=== PATIENT | male | born 1940 | race Caucasian/White ===

== ENCOUNTER 2016-06-09 09:56 | Emergency (ER) | payer MEDICARE, OTHER ==
[~2016-06-09] VITALS: Ht 175.3 cm; Wt 96.2 kg
[~2016-06-09 09:56] MED LIST: AMIO200T PO; ASPI81TA81; BISO10TA5 PO; CALC600T25; CINN500T PO; FERR325T PO; FISH120014; FLAX100013; FURO40TA PO; GLUCCAP3; ISOS30TA3 PO; LISI10TA3 PO; MULT1CHW70; NIAC500 PO; OMEP40CA2 PO; POTA10TA8 PO; PROSCAP2 PO; TYLE650T9; WARF-58 PO; ZOCO40TA PO
[2016-06-09 10:00] VITALS: BP 119/66; PULSE 66; RESP 18; TEMP 99.2; O2SAT 95
[2016-06-09] MEDS ORDERED: OXYC-395 PO (10:28)
[2016-06-09] MEDS ORDERED: CYCL1TAB29 PO (10:42)
--- NOTE | 2016-06-09 10:42 | PD ---
HPI Chief Complaint: Back/ Neck Pain or Injury Time Seen by Provider: 10:17 Travel History International Travel<30 days: No Contact w/Intl Traveler<30days: No Traveled to known affect area: No History of Present Illness HPI 75-year-old man with a history of multiple medical problems, including CAD, aVR , A. fib, on warfarin, presents with low back pain for the past 2 days. He states he was in his lazy boy, his foot was inadvertently call in a floor rug rock when he went to go through the chair back to [facility]. He pulled his back. He is having severe pain since then. He's had chronic back problems and arthritis. He is on acetaminophen 3 times daily. Pain shot on the right side initially, no radiation now. No numbness tingling. He felt like the right leg gave out a little bit on him when he was walking in. No overt weakness. No other complaints. History Past Medical History Narrative Medical CAD, history of CABG Porcine aortic valve replacement Hypertension on hyperlipidemia A. fib, on warfarin CHF Tetanus Vaccination: > 5 Years Influenza Vaccination: Yes Social History Alcohol Use: No Tobacco Use: No (quit ) Allergies-Medications (Allergen,Severity, Reaction): Coded Allergies: No Known Allergies (Unverified , 06/09/16) Reported Meds & Prescriptions Reported Meds & Active Scripts Active Reported Oxycodone (Oxycodone HCl) 10 Mg Tab 10 Mg PO Q6H PRN Warfarin 3 Mg Tab 3 Mg PO DAILY Potassium Chloride CR (Potassium Chloride) 10 Meq Tab 10 Meq PO BID Glucosamine & Fish Oil 117-179-45-40 mg (Glucosamine-Fish Oil-Epa-Dha) 1 Cap Cap Tylenol 8 Hour Arthritis (Acetaminophen) 650 Mg Tab Zocor (Simvastatin) 40 Mg Tab 20 Mg PO DAILY Omeprazole 40 Mg Cap 40 Mg PO DAILY Niaspan (Niacin) 500 Mg Tab 500 Mg PO HS Multivitamin Adult (Multiple Vitamins W/ Minerals) 1 Chw Chw Lisinopril 10 Mg Tab 10 Mg PO BID Isosorbide Mononitrate ER (Isosorbide Mononitrate) 30 Mg Colin 30 Mg PO DAILY Furosemide 40 Mg Tab 40 Mg PO BID Flax Seed Oil (Flaxseed (Linseed)) 1,000 Mg Cap Fish Oil ([place]-3 Fatty Acids) 1,200 Mg Cap Ferrous Sulfate 325 Mg Tab 325 Mg PO DAILY Cinnamon 500 Mg Tab 500 Mg PO DAILY Calcium (Calcium Carbonate) 600 Mg Tab Bisoprolol (Bisoprolol Fumarate) 10 Mg Tab 10 Mg PO DAILY Aspir-81 (Aspirin) 81 Mg Tabdr Amiodarone (Amiodarone HCl) 200 Mg Tab 200 Mg PO DAILY Review of Systems Except as stated in HPI: all other systems reviewed are Neg Physical Exam Narrative GENERAL: Well-developed, well-nourished, no acute distress. SKIN: Warm and dry. CARDIOVASCULAR: Warm and well perfused. RESPIRATORY: Normal rate and effort. MUSCULOSKELETAL: Normal appearance of back and bilateral lower extremities. No ecchymosis, swelling, bruising. No rashes. Normal muscle bulk and tone. NEUROLOGICAL: Strength full 5/5 and equal in bilateral lower extremities in proximal and distal muscle groups. 5/5 in large toe flexion and extension. Sensation is intact to light touch throughout. Reflexes symmetric. No clonus. Negative seated straight leg raise bilaterally. PSYCHIATRIC: Appropriate mood and affect; insight and judgment normal. Data Data Last Documented VS Vital Signs Date Time Temp Pulse Resp B/P Pulse Ox O2 Delivery O2 Flow Rate FiO2 06/09/16 10:00 99.2 66 18 119/66 95 Orders Morphine Inj (Morphine Inj) (06/09/16 10:45) Ketorolac Inj (Toradol Inj) (06/09/16 10:45) MDM Medical Decision Making Medical Screen Exam Complete: Yes Emergency Medical Condition: Yes Differential Diagnosis Back strain or sprain, radiculopathy, sciatica, herniated disc, other Narrative Course Medical decision-making new While 75-year-old man presents emergent from with acute back pain, likely through his back out. Looks well. Some radiculopathy symptoms. Normal exam. Recommend supportive treatment. On warfarin so we'll try to avoid NSAIDs. Continue acetaminophen and Flexeril as needed. Diagnosis Primary Impression: Low back strain Qualified Code: S39.012A - Low back strain, initial encounter Additional Instructions: Continue acetaminophen 3 times daily. Take Flexeril as needed for muscle spasms and strain. Follow up with her primary doctor in the next 2-4 days. Return to the emergency department for any worsening pain, numbness, tingling, weakness, or any other new or worsening symptoms. Med/Other Pt SpecificInfo: Prescription(s) given Scripts Cyclobenzaprine (Flexeril)10 Mg Tab10 Mg PO TID PRN (MUSCLE SPASM) #30 TAB Prov:Francis Thayer MD 06/09/16 Disposition: 01 DISCHARGE HOME Condition: Stable Francis Thayer MD Jun 09, 2016 10:42
[2016-06-09] MEDS ORDERED: KETOROLAC TROMETHAMINE 60 MG/2 ML (IM) VIAL IM ONE (10:45)
[2016-06-09] MEDS ORDERED: MORPHINE SULFATE 4 MG/ML INJ IM ONE (10:45)
[2016-06-09 10:58] VITALS: BP 110/61; PULSE 56; RESP 16; O2SAT 94
[2016-06-09 11:29] VITALS: RESP 16
== END 2016-06-09 11:34 | disposition home or self-care (01) ==
LOC: PHEFT 09:56
DX: S39.012A Strain of muscle, fascia and tendon of lower back, initial encounter (principal); I10 Essential (primary) hypertension; I25.10 Atherosclerotic heart disease of native coronary artery without angina pectoris; I48.91 Unspecified atrial fibrillation; I50.9 Heart failure, unspecified; Z95.2 Presence of prosthetic heart valve; Z95.1 Presence of aortocoronary bypass graft; Z79.01 Long term (current) use of anticoagulants; X50.0XXA Overexertion from strenuous movement or load, initial encounter; Y93.89 Activity, other specified; Y92.008 Other place in unspecified non-institutional (private) residence as the place of occurrence of the external cause
CPT/HCPCS: 96372; 99283; J1885; J2270

== ENCOUNTER 2016-06-20 08:35 | Inpatient (IN) | payer MEDICARE, OTHER ==
[2016-06-20] VITALS (11 sets, daily range): BP systolic 120–160; BP diastolic 64–89; PULSE 57–78; RESP 18–20; TEMP 96.3–98.6; O2SAT 92–97
[~2016-06-20 08:35] MED LIST changes: +CYCL1TAB29 PO; +OXYC-395 PO; -PROSCAP2 PO
--- NOTE | 2016-06-20 08:52 | PD ---
HPI Chief Complaint: Musculoskeletal Complaint Time Seen by Provider: 08:48 Travel History International Travel<30 days: No Contact w/Intl Traveler<30days: No Traveled to known affect area: No History of Present Illness HPI This is a 75-year-old male who presents to the emergency department with low back pain. His pain is worsening over the past 5 days described as a stabbing pain in the lower back associated with spasms, intermittent, severe, worse with movement. It's at the point where he has trouble getting out of bed and it takes him an hour and a half to 2 hours just to get from seated to standing position. He's been seeing Dr. Cain his primary care physician for this pain who has prescribed him Tylenol with Codeine and obtained an MRI of the lumbar spine. He also used was seen in the emergency department and prescribed Flexeril which is not helping him. He denies any numbness or weakness in his pain is localized in the low back and doesn't radiate down the legs. PFSH Past Medical History Hx Anticoagulant Therapy: Yes Atrial Fibrillation: Yes Heart Rhythm Problems: Yes Chest Pain: Yes Congestive Heart Failure: Yes Diminished Hearing: No Hypertension: Yes Musculoskeletal: Yes (chronic back pain) Past Surgical History Body Medical Devices: medtronic freestyle aortic root heart valve Cardiac Surgery: Yes (cardiac ablation, bovine valve) Social History Alcohol Use: No Tobacco Use: No (quit 1950s) Substance Use: No Allergies-Medications (Allergen,Severity, Reaction): Coded Allergies: No Known Allergies (Unverified , 06/20/16) Reported Meds & Prescriptions Reported Meds & Active Scripts Active Reported Fish Oil ([place]-3 Fatty Acids) 1,200 Mg Cap 1 Tab PO DAILY Warfarin 3 Mg Tab 3 Mg PO DAILY Potassium Chloride CR (Potassium Chloride) 10 Meq Tab 10 Meq PO DAILY Glucosamine & Fish Oil [id number] mg (Glucosamine-Fish Oil-Epa-Dha) 1 Cap Cap Tylenol 8 Hour Arthritis (Acetaminophen) 650 Mg Tab Zocor (Simvastatin) 40 Mg Tab 20 Mg PO DAILY Omeprazole 40 Mg Cap 40 Mg PO DAILY Niaspan (Niacin) 500 Mg Tab 500 Mg PO HS Multivitamin Adult (Multiple Vitamins W/ Minerals) 1 Chw Chw Lisinopril 10 Mg Tab 10 Mg PO BID Isosorbide Mononitrate ER (Isosorbide Mononitrate) 30 Mg Colin 30 Mg PO DAILY Furosemide 40 Mg Tab 40 Mg PO DAILY Flax Seed Oil (Flaxseed (Linseed)) 1,000 Mg Cap Ferrous Sulfate 325 Mg Tab 325 Mg PO DAILY Cinnamon 500 Mg Tab 500 Mg PO DAILY Calcium (Calcium Carbonate) 600 Mg Tab Bisoprolol (Bisoprolol Fumarate) 10 Mg Tab 10 Mg PO DAILY Aspir-81 (Aspirin) 81 Mg Tabdr Amiodarone (Amiodarone HCl) 200 Mg Tab 200 Mg PO DAILY Review of Systems Except as stated in HPI: all other systems reviewed are Neg Physical Exam Narrative GENERAL:Well appearing, no acute distress SKIN: Warm and dry. HEAD: Atraumatic. Normocephalic. EYES: Pupils equal and round. No injection or drainage. ENT: Moist mucous membranes NECK: Trachea midline. CARDIOVASCULAR: Regular rate and rhythm. No murmur appreciated. 2+ bilateral d.p. pulses in the lower extremities with normal capillary refill. RESPIRATORY: Clear to auscultation. Breath sounds equal bilaterally. GASTROINTESTINAL: Abdomen soft, non-tender, nondistended. MUSCULOSKELETAL: No obvious deformities. NEUROLOGICAL: Awake and alert. No obvious cranial nerve deficits. 4/5 strength bilateral lower extremities, sensation is grossly intact to light touch PSYCHIATRIC: Appropriate mood and affect; insight and judgment normal. Data Data Last Documented VS Vital Signs Date Time Temp Pulse Resp B/P Pulse Ox O2 Delivery O2 Flow Rate FiO2 06/20/16 09:47 76 20 140/78 94 06/20/16 08:46 98.6 Orders Complete Blood Count With Diff (06/20/16 08:48) Basic Metabolic Panel (Bmp) (06/20/16 08:48) Prothrombin Time / Inr (Pt) (06/20/16 08:48) Hydromorphone Pf Inj (Dilaudid Pf Inj) (06/20/16 09:00) Ketorolac Inj (Toradol Inj) (06/20/16 09:00) Consult Neurosurgery (06/20/16 ) Admit Order (Ed Use Only) (06/20/16 ) Labs Laboratory Tests Test 06/20/16 09:00 White Blood Count 9.7 TH/MM3 Red Blood Count 5.05 MIL/MM3 Hemoglobin 13.6 GM/DL Hematocrit 41.5 % Mean Corpuscular Volume 82.1 FL Mean Corpuscular Hemoglobin 26.9 PG Mean Corpuscular Hemoglobin 32.7 % Concent Red Cell Distribution Width 16.1 % Platelet Count 253 TH/MM3 Mean Platelet Volume 7.5 FL Neutrophils (%) (Auto) 83.2 % Lymphocytes (%) (Auto) 10.5 % Monocytes (%) (Auto) 5.2 % Eosinophils (%) (Auto) 0.6 % Basophils (%) (Auto) 0.5 % Neutrophils # (Auto) 8.1 TH/MM3 Lymphocytes # (Auto) 1.0 TH/MM3 Monocytes # (Auto) 0.5 TH/MM3 Eosinophils # (Auto) 0.1 TH/MM3 Basophils # (Auto) 0.0 TH/MM3 CBC Comment DIFF FINAL Differential Comment Prothrombin Time 25.2 SEC Prothromb Time International 2.2 RATIO Ratio Sodium Level 139 MEQ/L Potassium Level 4.3 MEQ/L Chloride Level 103 MEQ/L Carbon Dioxide Level 26.5 MEQ/L Anion Gap 10 MEQ/L Blood Urea Nitrogen 13 MG/DL Creatinine 0.98 MG/DL Estimat Glomerular Filtration 74 ML/MIN Rate Random Glucose 127 MG/DL Calcium Level 8.6 MG/DL [facility] Medical Decision Making Medical Screen Exam Complete: Yes Emergency Medical Condition: Yes Interpretation(s) Labs are reassuring INR is 2.2 MRI: Broad-based disc protrusion effacing the ventral thecal sac at L1-L2 with mild spinal stenosis, moderate spinal stenosis at L2-L3, and a broad-based disc bulge effacing the thecal sac at L3-L4 Differential Diagnosis Herniated disc, spinal stenosis, arthritis, cauda equina syndrome Narrative Course This is a 75-year-old male who presents to the emergency department with acute on chronic low back pain. He has been unable to sit up or stand today without severe pain. He was placed on a monitor and an IV was established. He was given Toradol and Dilaudid however his symptoms continue to be severe. He had an outpatient MRI which demonstrates spinal stenosis and multiple disc protrusions with effacement of the thecal sac. After pain control I attempted to move the patient and he sit up at all without severe pain. I don't think the patient can be discharged home as he is unable to walk. I spoke to Dr. López regarding the patient's MRI findings and he requested that he be transferred to the main hospital for further neurosurgical evaluation. Patient will be admitted to the hospitalist service Physician Communication Physician Communication Discussed with Dr. Neff and Dr. López Diagnosis Primary Impression: Spinal stenosis Qualified Code: M48.06 - Spinal stenosis of lumbar region Admitting Information Admitting Physician Requests: Observation Carey Gilliam MD Jun 20, 2016 08:52
[2016-06-20] MEDS ORDERED: KETOROLAC TROMETHAMINE 30 MG/ML (IVP) VIAL IV PUSH ONE (09:00)
[2016-06-20] MEDS ORDERED: HYDROmorphone HCL PF 1 MG/ML VIAL IV PUSH ONE (09:00)
[2016-06-20 09:11] LABS: AUTOMATED NEUTROPHIL # 8.1 TH/MM3 (1.8-7.7); BASOPHIL % 0.5 % (0.0-2.0); EOSINOPHIL # 0.1 TH/MM3 (0-0.4); EOSINOPHIL % 0.6 % (0.0-4.0); HEMATOCRIT 41.5 % (39.0-51.0); LYMPH % 10.5 % (9.0-44.0); MEAN CELL VOLUME 82.1 FL (80.0-100.0); MEAN CORPUSCULAR HEMOGLOBIN 26.9 PG (27.0-34.0); MEAN CORPUSCULAR HGB CONC 32.7 % (32.0-36.0); MONO % 5.2 % (0.0-8.0); NEUT % 83.2 % (16.0-70.0); PLATELET COUNT 253 TH/MM3 (150-450); RED BLOOD COUNT 5.05 MIL/MM3 (4.50-5.90); RED CELL DISTRIBUTION WIDTH 16.1 % (11.6-17.2); WHITE BLOOD COUNT 9.7 TH/MM3 (4.0-11.0)
[2016-06-20 09:12] LABS: HEMO FLAGS DIFF FINAL
--- NOTE | 2016-06-20 09:12 | HHI.FF ---
Face to Face Verification Diagnosis: (1) Low back strain Physical Therapy Order: Evaluate and Treat, Improve ambulation, Strength and gait training Home Health Nursing Order: Medical education Signs/symptoms of disease process Medication education-adverse effect Nursing assessment with vital signs I have seen patient Francis Yañez on 06/20/16. My clinical findings support the need for the requested home health care services because: Ltd mobility - disease progression Deconditioned w/ increased weakness High risk of falls I certify that my clinical findings support that this patient is homebound because: Unsteady gait/balance [id number] bed/chair Carey Gilliam MD Jun 20, 2016 09:12
[2016-06-20 09:25] LABS: INTERNATIONAL NORMALIZED RATIO 2.2 RATIO; PROTHROMBIN TIME - PATIENT 25.2 SEC (9.8-11.6)
[2016-06-20 09:47] LABS: BICARBONATE 26.5 MEQ/L (21.0-32.0)
[2016-06-20 10:04] LABS: POTASSIUM 4.3 MEQ/L (3.5-5.1)
[2016-06-20] MEDS ORDERED: FISH120014 PO (11:22)
[2016-06-20] MEDS ORDERED: SODIUM CHLORIDE 0.9% FLUSH 5 ML FLUSH FLUSH PRN (12:00)
[2016-06-20] MEDS ORDERED: KETOROLAC TROMETHAMINE 30 MG/ML (IVP) VIAL IVP PRN (12:00)
[2016-06-20] MEDS ORDERED: ONDANSETRON HCL 4 MG/2 ML VIAL IVP PRN (12:00)
[2016-06-20] MEDS ORDERED: ACETAMINOPHEN/HYDROcodone 325 MG/5 MG TAB PO PRN (12:00)
[2016-06-20] MEDS ORDERED: ACETAMINOPHEN 325 MG TAB PO PRN (12:00)
[2016-06-20] MEDS ORDERED: NALOXONE HCL 0.4 MG/ML AMP IV PRN (12:00)
--- NOTE | 2016-06-20 12:28 | HHI.HP ---
[facility] Service [facility] Primary Care Physician No Primary Care Physician Admission Diagnosis low back pain Diagnoses: Travel History International Travel<30 Days: No Contact w/Intl Traveler <30 Da: No Traveled to Known Affected Are: No History of Present Illness This is a pleasant 75 year-old female with past medical history of atrial fibrillation, coronary artery disease, thoracic aortic aneurysm repair, porcine aortic valve on Coumadin, who presents to the ER today complaining of a two-week history of back pain now associated with inability to ambulate. He had been seen in the ER several days ago for this. His PCP Dr. olson ordered an MRI of the lumbar spine which was obtained 2 days ago and shows moderate spinal stenosis at the L2 to L3 levels, bulging disc at L3 to L4 which is effacing the ventral thecal sac, and moderate to severe bilateral foraminal narrowing at the L4 to L5 level. The patient has back pain that is radiating down both legs. He also has severe muscle spasms. The pain has been getting worse in outpatient setting. It has been taking him an hour to get ready every morning with his . This morning he was unable to ambulate or get out of bed. Every time he tries to move his leg he gets severe muscle spasm. His called [facility] and brought him to the emergency department. He had been taking Tylenol with Codeine for the pain. The patient also has constipation. He denies numbness or tingling in the sagittal region or bowel or bladder incontinence. The ER physician did discuss with neurosurgery director of conservation Dr. López who agreed for the patient to be transferred to the [facility] for neurosurgical evaluation. Review of Systems Constitutional: DENIES: Fever, Chills Ears, nose, mouth, throat: DENIES: Throat pain, Hoarseness Respiratory: DENIES: Cough, Shortness of breath Cardiovascular: DENIES: Chest pain, Palpitations Gastrointestinal: DENIES: Nausea, Vomiting Genitourinary: DENIES: Dysuria Musculoskeletal: COMPLAINS OF: Back pain, DENIES: Neck pain Integumentary: DENIES: Pruritus, Rash Neurologic: COMPLAINS OF: Abnormal gait, Localized weakness (unable to move legs), DENIES: Headache, Paresthesias, Tremor Psychiatric: DENIES: Anxiety, Confusion Past Family Social History Past Medical History Atrial fibrillation followed by Dr. rosales, Coumadin levels managed by Dr. Auguste Hypertension Congestive heart failure with unknown ejection fraction, appears fluid compensated currently History of myocardial infarction 2 Thoracic aortic aneurysm status post open repair in February 2015 in [place] Coronary artery bypass grafting in 2014 in [place] Aortic stenosis status post porcine valve in 2014 and [place] Hypertension Hyperlipidemia GERD Past Surgical History Cardiac catheterization with stents 2 in 2006 Coronary artery bypass with grafts, thoracic aortic aneurysm repair, aortic valve porcine in [place] in February 2015 Reported Medications Allergies Coded Allergies Type Severity Reaction Last Updated Verified No Known Allergies 06/20/16 No Active Scripts Medications Dose Route/Sig Days Date Category Fish Oil ([place]-3 Fatty Acids) 1,200 Mg Cap 1 Tab PO DAILY 06/20/16 Reported Warfarin 3 Mg Tab 3 Mg PO DAILY 05/10/16 Reported Potassium Chloride CR (Potassium Chloride) 10 Meq Tab 10 Meq PO DAILY 05/10/16 Reported Glucosamine & Fish Oil [id number] mg (Glucosamine-Fish Oil-Epa-Dha) 1 Cap Cap 05/10/16 Reported Tylenol 8 Hour Arthritis (Acetaminophen) 650 Mg Tab 05/10/16 Reported Zocor (Simvastatin) 40 Mg Tab 20 Mg PO DAILY 05/10/16 Reported Omeprazole 40 Mg Cap 40 Mg PO DAILY 05/10/16 Reported Niaspan (Niacin) 500 Mg Tab 500 Mg PO HS 05/10/16 Reported Multivitamin Adult (Multiple Vitamins W/ Minerals) 1 Chw Chw 05/10/16 Reported Lisinopril 10 Mg Tab 10 Mg PO BID 05/10/16 Reported Isosorbide Mononitrate ER (Isosorbide Mononitrate) 30 Mg Colin 30 Mg PO DAILY 05/10/16 Reported Furosemide 40 Mg Tab 40 Mg PO DAILY 05/10/16 Reported Flax Seed Oil (Flaxseed (Linseed)) 1,000 Mg Cap 05/10/16 Reported Ferrous Sulfate 325 Mg Tab 325 Mg PO DAILY 05/10/16 Reported Cinnamon 500 Mg Tab 500 Mg PO DAILY 05/10/16 Reported Calcium (Calcium Carbonate) 600 Mg Tab 05/10/16 Reported Bisoprolol (Bisoprolol Fumarate) 10 Mg Tab 10 Mg PO DAILY 05/10/16 Reported Aspir-81 (Aspirin) 81 Mg Tabdr 05/10/16 Reported Amiodarone (Amiodarone HCl) 200 Mg Tab 200 Mg PO DAILY 05/10/16 Reported Allergies: Coded Allergies: No Known Allergies (Unverified , 06/20/16) Family History Reviewed and noncontributory Social History He smoked briefly more than 60 years ago. He is , his is [place]. The patient denies significant alcohol use. Physical Exam Vital Signs Vital Signs Date Time Temp Pulse Resp B/P Pulse Ox O2 Delivery O2 Flow Rate FiO2 06/20/16 12:10 60 20 120/64 96 06/20/16 11:15 78 20 145/89 94 06/20/16 09:47 76 20 140/78 94 06/20/16 09:10 68 18 147/79 92 06/20/16 08:46 98.6 71 20 152/79 92 Physical Exam GENERAL: Well-nourished, well-developed pleasant elderly male patient. SKIN: Warm and dry. HEAD: Normocephalic. EYES: No scleral icterus. No injection or drainage. NECK: Supple, trachea midline. No JVD or lymphadenopathy. CARDIOVASCULAR: Regular rate and rhythm without murmurs, gallops, or rubs. Normal sinus rhythm on telemetry. RESPIRATORY: Breath sounds equal bilaterally. No accessory muscle use. GASTROINTESTINAL: Abdomen soft, non-tender, nondistended. EXTREMITIES: No cyanosis, or edema. NEUROLOGICAL: Awake, alert, and oriented x 3. The patient has 3 out of 5 dorsi and plantar flexion in bilateral feet, he is unable to flex the hip or lift either leg off the bed even minimally. Sensation to light touch intact throughout lower extremities. Laboratory Laboratory Tests Test 06/20/16 09:00 White Blood Count 9.7 Red Blood Count 5.05 Hemoglobin 13.6 Hematocrit 41.5 Mean Corpuscular Volume 82.1 Mean Corpuscular Hemoglobin 26.9 Mean Corpuscular Hemoglobin 32.7 Concent Red Cell Distribution Width 16.1 Platelet Count 253 Mean Platelet Volume 7.5 Neutrophils (%) (Auto) 83.2 Lymphocytes (%) (Auto) 10.5 Monocytes (%) (Auto) 5.2 Eosinophils (%) (Auto) 0.6 Basophils (%) (Auto) 0.5 Neutrophils # (Auto) 8.1 Lymphocytes # (Auto) 1.0 Monocytes # (Auto) 0.5 Eosinophils # (Auto) 0.1 Basophils # (Auto) 0.0 CBC Comment DIFF FINAL Differential Comment Prothrombin Time 25.2 Prothromb Time International 2.2 Ratio Sodium Level 139 Potassium Level 4.3 Chloride Level 103 Carbon Dioxide Level 26.5 Anion Gap 10 Blood Urea Nitrogen 13 Creatinine 0.98 Estimat Glomerular Filtration 74 Rate Random Glucose 127 Calcium Level 8.6 Result Diagram: 06/20/16 0900 06/20/16 0900 Imaging See history of present illness Assessment and Plan Assessment and Plan -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 Now associated with new neurologic deficit including inability to ambulate as well as some weakness in dorsi and plantar flexion bilaterally in the lower extremities. The patient has severe muscle spasm as well. He is failed outpatient treatment with his memory care provider. We will admit to the hospital. Neurosurgery consultation has been requested. The ER physician did discuss with Dr. López who will be evaluating the patient at the [facility]. Unfortunately the patient is a poor surgical candidate. It is not clear if he would require surgery either at this time. The patient and his additionally have noted to me that if no surgery can be performed that they would like to be transferred back to [facility] as the lives in this area. -In the meantime I will consult physical therapy, start him on Lortab as needed for pain, Flexeril as needed for muscle spasm, total IV needed for severe breakthrough pain. Heating pads as needed as well. -Paroxysmal Atrial fibrillation followed by Dr. rosales, Coumadin levels managed by Dr. Auguste - continue Coumadin with pharmacy consult, amiodarone and bisoprolol. -Hypertension - continue lisinopril -Congestive heart failure with unknown ejection fraction, appears fluid compensated currently -History of myocardial infarction 2 -Thoracic aortic aneurysm status post open repair in February 2015 in [place] -Coronary artery bypass grafting in 2014 in [place] Aortic stenosis status post porcine valve in 2014 and [place] Hypertension Hyperlipidemia ADAM Neff,Kavita Cole MD Jun 20, 2016 12:28
[2016-06-20] MEDS: ACETAMINOPHEN/HYDROcodone 325 MG/10 MG TAB PO PRN ×2 (14:27→18:23)
--- NOTE | 2016-06-20 22:06 | PD.CONS ---
History of Present Illness Service Neurosurgery Consult Requested By Medicine service Reason for Consult Severe low back pain Primary Care Physician No Primary Care Physician Diagnoses: History of Present Illness Pleasant 75-year-old gentleman with a history of chronic low back pain who states approximately 2 weeks ago he was in his recliner and he pushed backwards and felt a snap in his back with immediate onset of severe pain across his low back at the waistline. Since then he has also experienced some radiation of pain to the posterior lateral right lower extremity, although this pain is better in the past day since he has been receiving more consistent pain medication. He states that trying to walk on his left leg seems to increase the back pain. He did have some problems with constipation. The past couple weeks and states that he had a bowel movement yesterday, but hard to that had gone approximately 4 or 5 days without a bowel movement. He has no complaint of bladder dysfunction. There is no complaint of definite weakness or numbness in the lower extremity. He has no complaint of any upper extremity or cervical or thoracic regions symptoms. He gives a history of low back pain starting approximately 1968. He states it every few years he has a severe flareup of back pain which puts him at bed rest for up to 6 weeks. His last severe flareup was approximately 4 years ago. He has had pain management injections and worse times in the past. Review of Systems Constitutional: DENIES: Fever, Chills Ears, nose, mouth, throat: DENIES: Throat pain Respiratory: DENIES: Cough, Sputum production, Shortness of breath Cardiovascular: DENIES: Chest pain, Palpitations Gastrointestinal: COMPLAINS OF: Constipation, DENIES: Abdominal pain, Diarrhea , Nausea Musculoskeletal: COMPLAINS OF: Muscle aches, Stiffness, Back pain, DENIES: Joint pain, Neck pain Hematologic/lymphatic: DENIES: Bruising Neurologic: COMPLAINS OF: Abnormal gait, Poor Balance, DENIES: Headache Psychiatric: DENIES: Anxiety Past Family Social History Allergies: Coded Allergies: No Known Allergies (Unverified , 06/20/16) Past Medical History Coronary artery disease Aortic valve disease-status post aortic valve replacement approximately 15 months ago Atrial fibrillation Hypertension CHF Previous [place] Dyslipidemia Chronic low back pain Past Surgical History Aortic valve replacement Thoracic aortic aneurysm repair CABG Cardiac catheter with stent placement Reported Medications Reported Meds & Active Scripts Active Reported Fish Oil ([place]-3 Fatty Acids) 1,200 Mg Cap 1 Tab PO DAILY Warfarin 3 Mg Tab 3 Mg PO DAILY Potassium Chloride CR (Potassium Chloride) 10 Meq Tab 10 Meq PO DAILY Glucosamine & Fish Oil [id number] mg (Glucosamine-Fish Oil-Epa-Dha) 1 Cap Cap Tylenol 8 Hour Arthritis (Acetaminophen) 650 Mg Tab Zocor (Simvastatin) 40 Mg Tab 20 Mg PO DAILY Omeprazole 40 Mg Cap 40 Mg PO DAILY Niaspan (Niacin) 500 Mg Tab 500 Mg PO HS Multivitamin Adult (Multiple Vitamins W/ Minerals) 1 Chw Chw Lisinopril 10 Mg Tab 10 Mg PO BID Isosorbide Mononitrate ER (Isosorbide Mononitrate) 30 Mg Colin 30 Mg PO DAILY Furosemide 40 Mg Tab 40 Mg PO DAILY Flax Seed Oil (Flaxseed (Linseed)) 1,000 Mg Cap Ferrous Sulfate 325 Mg Tab 325 Mg PO DAILY Cinnamon 500 Mg Tab 500 Mg PO DAILY Calcium (Calcium Carbonate) 600 Mg Tab Bisoprolol (Bisoprolol Fumarate) 10 Mg Tab 10 Mg PO DAILY Aspir-81 (Aspirin) 81 Mg Tabdr Amiodarone (Amiodarone HCl) 200 Mg Tab 200 Mg PO DAILY Family History Negative cancer, diabetes, neurologic disorders Social History Smoked cigarettes many years ago No significant alcohol use Physical Exam Vital Signs Vital Signs Date Time Temp Pulse Resp B/P Pulse Ox O2 Delivery O2 Flow Rate FiO2 06/20/16 20:09 98.1 67 20 160/84 95 06/20/16 18:05 96.3 57 18 140/78 95 06/20/16 16:10 59 20 143/76 93 06/20/16 14:13 58 20 136/78 97 06/20/16 13:20 60 20 132/80 96 06/20/16 12:10 60 20 120/64 96 06/20/16 11:15 78 20 145/89 94 06/20/16 09:47 76 20 140/78 94 06/20/16 09:10 68 18 147/79 92 06/20/16 08:46 98.6 71 20 152/79 92 Physical Exam GENERAL: This is a well-nourished, well-developed patient, in no apparent distress. SKIN: No rashes, ecchymoses or lesions. Cool and dry. Feet are somewhat cold to touch but he has good capillary refill HEAD: Atraumatic. Normocephalic. EYES: Sclerae are clear and nonicteric ENT: Oropharynx clear NECK: Nontender. Normal range of motion CARDIOVASCULAR: Regular rate and rhythm RESPIRATORY: Clear, nonlabored GASTROINTESTINAL: Abdomen soft, moderately distended. Nontender MUSCULOSKELETAL: No extremity edema or cyanosis. Dorsalis pedis and posterior tibial pulses 2+ bilateral. Feet are somewhat cool to touch NEUROLOGICAL: Awake and alert Oriented X3 Speech is clear Conversant and appropriate Follow simple commands well Answers questions appropriately Reasonable judgment and insight Recent and remote memory are intact No evidence of anxiety or depression Sensation intact by touch all extremities Strength normal major flexion and extension groups throughout the upper and lower extremities He is somewhat cautious with lower extremity motor testing but with encouragement maintains normal strength throughout. Zulema's response absent bilateral No ankle clonus Plantar flex her bilateral Laboratory Laboratory Tests Test 06/20/16 09:00 White Blood Count 9.7 Red Blood Count 5.05 Hemoglobin 13.6 Hematocrit 41.5 Mean Corpuscular Volume 82.1 Mean Corpuscular Hemoglobin 26.9 Mean Corpuscular Hemoglobin 32.7 Concent Red Cell Distribution Width 16.1 Platelet Count 253 Mean Platelet Volume 7.5 Neutrophils (%) (Auto) 83.2 Lymphocytes (%) (Auto) 10.5 Monocytes (%) (Auto) 5.2 Eosinophils (%) (Auto) 0.6 Basophils (%) (Auto) 0.5 Neutrophils # (Auto) 8.1 Lymphocytes # (Auto) 1.0 Monocytes # (Auto) 0.5 Eosinophils # (Auto) 0.1 Basophils # (Auto) 0.0 CBC Comment DIFF FINAL Differential Comment Prothrombin Time 25.2 Prothromb Time International 2.2 Ratio Sodium Level 139 Potassium Level 4.3 Chloride Level 103 Carbon Dioxide Level 26.5 Anion Gap 10 Blood Urea Nitrogen 13 Creatinine 0.98 Estimat Glomerular Filtration 74 Rate Random Glucose 127 Calcium Level 8.6 Result Diagram: 06/20/16 0900 06/20/16 0900 Imaging Patient's recent [facility] images have been reviewed by the undersigned. The study reveals moderate L2-3 stenosis with severe right and moderate left L4 5 foraminal stenosis and moderate bilateral L4 5 lateral recess stenosis. Assessment and Plan Assessment and Plan Impression: 1. Lumbar spondylosis and degenerative disc disease with moderate L2-3 canal and at least moderate bilateral L4 5 foraminal stenosis. 2. Recent onset severe low back pain. Patient has history of chronic low back pain with intermittent severe flareups. 3. No definite indication of focal lumbar radiculopathy or neurogenic claudication on exam. He may have some right L4-5 radicular symptoms without deficit, related to right L4 5 foraminal and lateral recess stenosis Recommendations: The MRI imaging findings were discussed at length with the patient. Since his pain seems to be gradually improving, and he does not have a significant focal neurologic deficit, it is recommended that he continue conservative treatment. His present medication regimen for the back pain has been reviewed and will be continued. Continue physical therapy. I advised him that for any aggressive treatment including possible interventional pain management, that the anticoagulation would have to be held. Given his significant history of cardiac disease with valve and stent placement and prior [place], he would appear to be at relatively high increased risk for cardiac event or CVA of the anticoagulation is held for any invasive procedures. Eddie López MD Jun 20, 2016 22:05
[2016-06-20] MEDS: NIACIN 500 MG EXTENDED RELEASE TAB PO SCH (22:54)
[2016-06-20] MEDS: LISINOPRIL 10 MG TAB PO SCH (22:54)
[2016-06-20] MEDS: SODIUM CHLORIDE 0.9% FLUSH 5 ML FLUSH FLUSH SCH (22:54)
[2016-06-21] MEDS: ACETAMINOPHEN/HYDROcodone 325 MG/10 MG TAB PO PRN ×3 (04:23→20:21)
[2016-06-21 04:55] VITALS: BP 125/69; PULSE 59; RESP 20; TEMP 97.9; O2SAT 94
[2016-06-21 07:42] LABS: INTERNATIONAL NORMALIZED RATIO 2.5 RATIO; PROTHROMBIN TIME - PATIENT 28.9 SEC (9.8-11.6)
[2016-06-21 08:00] VITALS: BP 119/76; PULSE 63; RESP 18; TEMP 97.7; O2SAT 95
[2016-06-21 08:03] LABS: BICARBONATE 26.1 MEQ/L (21.0-32.0); POTASSIUM 4.5 MEQ/L (3.5-5.1)
[2016-06-21] MEDS: FERROUS SULFATE 325 MG (65 MG ELEMENTAL IRON) TAB PO SCH (08:45)
[2016-06-21] MEDS: POTASSIUM CHLORIDE 10 MEQ CONTROLLED RELEASE TAB PO SCH (08:45)
[2016-06-21] MEDS: PANTOPRAZOLE SOD 40 MG DELAYED RELEASE TAB PO SCH (08:45)
[2016-06-21] MEDS: FUROSEMIDE 40 MG TAB PO SCH (08:45)
[2016-06-21] MEDS: AMIODARONE 200 MG TAB PO SCH (08:45)
[2016-06-21] MEDS: PRAVASTATIN SOD 40 MG TAB PO SCH (08:46)
[2016-06-21] MEDS: SODIUM CHLORIDE 0.9% FLUSH 5 ML FLUSH FLUSH SCH ×2 (08:46→20:21)
[2016-06-21] MEDS: ISOSORBIDE MONONITRATE 30 MG TAB PO SCH (08:46)
[2016-06-21] MEDS: LISINOPRIL 10 MG TAB PO SCH ×2 (08:46→20:21)
[2016-06-21] MEDS: BISOPROLOL FUMARATE 5 MG TAB PO SCH (09:59)
[2016-06-21] MEDS: HYDROmorphone HCL PF 1 MG/ML VIAL IV PRN (09:59)
[2016-06-21] MEDS ORDERED: INFLUENZA VIRUS VACCINE (QUADRIVALENT) 0.5 ML SYR IM ONE (10:00)
--- NOTE | 2016-06-21 11:03 | HHI.PR ---
Subjective Remarks Follow up for low back pain, inability to ambulate. The patient reports continued low back pain that is located across the belt line with radiation into the right buttocks and lateral thigh. He has not yet been able to ambulate. He gets some temporary relief with the pain medications however the pain returns when the medications wear off. He denies any significant weakness of either lower extremity, however he is limited by pain. Objective Vitals Vital Signs Date Time Temp Pulse Resp B/P Pulse Ox O2 Delivery O2 Flow Rate FiO2 06/21/16 08:00 97.7 63 18 119/76 95 06/21/16 04:55 97.9 59 20 125/69 94 06/20/16 23:39 98.1 67 20 134/69 94 06/20/16 20:09 98.1 67 20 160/84 95 06/20/16 18:05 96.3 57 18 140/78 95 06/20/16 16:10 59 20 143/76 93 06/20/16 14:13 58 20 136/78 97 06/20/16 13:20 60 20 132/80 96 06/20/16 12:10 60 20 120/64 96 06/20/16 11:15 78 20 145/89 94 Result Diagram: 06/20/16 0900 06/21/16 0705 Objective Remarks GENERAL: Well-nourished, well-developed elderly male patient in [facility]. SKIN: Warm and dry. No rash. HEAD: Normocephalic. Atraumatic. NECK: Supple. Trachea midline. CARDIOVASCULAR: Regular rate and rhythm. S1, S2 noted. No murmur appreciated. RESPIRATORY: No accessory muscle use. Clear to auscultation. Breath sounds equal bilaterally. GASTROINTESTINAL: Abdomen soft, non-tender, nondistended. Normoactive bowel sounds x4. MUSCULOSKELETAL: No obvious deformities. Extremities without clubbing, cyanosis , or edema. Diffuse lumbar paraspinous muscle tenderness to palpation. Unable to lift bilateral lower extremities off the bed secondary to low back pain. NEUROLOGICAL: Awake and alert. No obvious cranial nerve deficits. Motor grossly within normal limits. 5/5 muscle strength in bilateral upper and lower extremities. Normal speech. PSYCHIATRIC: Appropriate mood and affect; insight and judgment normal. Medications and IVs Current Medications Medications (Trade) Dose Ordered Sig/Kaiden Route Start Time Stop Time Status Last Admin (NS Flush) 2 ml UNSCH PRN FLUSH 06/20/16 12:00 (NS Flush) 2 ml BID FLUSH 06/20/16 21:00 06/21/16 08:46 (Tylenol) 650 mg Q4H PRN PO 06/20/16 12:00 (Zofran Inj) 4 mg Q6H PRN IVP 06/20/16 12:00 (Toradol Inj) 30 mg Q6H PRN IVP 06/20/16 12:00 06/25/16 11:59 ([place] 5-325 Mg) 1 tab Q4H PRN PO 06/20/16 12:00 06/20/16 22:54 ([place] 10-325 Mg) 1 tab Q4H PRN PO 06/20/16 12:00 06/21/16 04:23 (Dilaudid Pf Inj) 0.5 mg Q3H PRN IV 06/20/16 12:00 06/21/16 09:59 (Narcan Inj) 0.4 mg UNSCH PRN IV 06/20/16 12:00 (Flexeril) 5 mg Q8H PRN PO 06/20/16 12:00 (Cordarone) 200 mg DAILY PO 06/21/16 09:00 06/21/16 08:45 (Ferrous Sulfate) 325 mg DAILY PO 06/21/16 09:00 06/21/16 08:45 (Lasix) 40 mg DAILY PO 06/21/16 09:00 06/21/16 08:45 (Imdur) 30 mg DAILY PO 06/21/16 09:00 06/21/16 08:46 (Prinivil) 10 mg BID PO 06/20/16 21:00 06/21/16 08:46 (Slo-Niacin) 500 mg HS PO 06/20/16 21:00 06/20/16 22:54 (Protonix) 40 mg DAILY PO 06/21/16 09:00 06/21/16 08:45 (KCl) 10 meq DAILY PO 06/21/16 09:00 06/21/16 08:45 (Coumadin) 3 mg DAILY@16 PO 06/21/16 16:00 (Zebeta) 10 mg DAILY PO 06/21/16 09:00 06/21/16 09:59 Pravastatin Sodium 40 mg 40 mg DAILY PO 06/21/16 09:00 06/21/16 08:46 (Coumadin Consult Pharmacy) 0 ml @ 0 mls/hr UNSCH OTHER 06/20/16 12:00 Urinary Catheter: No Vascular Central Line Catheter: No A/P Assessment and Plan 75-year-old male with hx of afib on Coumadin, HTN, HLD, CHF, CAD, thoracic aortic aneurysm s/p repair 2014, CABG 2014, aortic stenosis s/p porcine valve 2014, GERD, presents with 2 week history of low back pain and inability to ambulate -Lumbar Radiculopathy, Spasms, with 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 FAILED OUTPATIENT treatment with PCP. Now associated with new neurologic deficit including inability to ambulate and severe muscle spasm. -Consulted Neurosurgery, Unfortunately the patient is a poor surgical candidate, and high risk to be off Coumadin, recommends conservative treatment -Consult PT, patient would prefer to go home with [facility], case management consulted -Continue pain control with [place] prn, IV Dilaudid and IV Toradol prn breakthrough; Flexeril prn spams; Heating pad -Patient still unable to ambulate today, monitor progress -Paroxysmal Atrial fibrillation followed by Dr. Auguste, Coumadin levels managed by Dr. Auguste -INR therapeutic. Continue Coumadin with pharmacy consult , amiodarone and bisoprolol. -Hypertension - continue lisinopril -Congestive heart failure with unknown ejection fraction, appears fluid compensated currently -History of myocardial infarction 2 -Thoracic aortic aneurysm status post open repair in February 2015 in [place] -Coronary artery bypass grafting in 2014 in [place] -Aortic stenosis status post porcine valve in 2014 and [place] -Hypertension -Hyperlipidemia -GERD Continue home medications as appropriate. DVT Prophylaxis: on Coumadin Written by Ann-Marie Redd, acting as scribe for Dr. Jordan on 06/21/16 at 09:30. The documentation accurately reflects the work performed [id number] by me Dr. Jordan on 06/21/16 at 09:30. Ann-Marie Redd PA-C Jun 21, 2016 11:03 Carol Jordan MD Jun 21, 2016 12:51
[2016-06-21 12:00] VITALS: BP 108/65; PULSE 61; RESP 18; TEMP 98.9; O2SAT 93
[2016-06-21 16:00] VITALS: BP 104/65; PULSE 64; RESP 18; TEMP 97.3; O2SAT 92
[2016-06-21] MEDS: WARFARIN SOD 3 MG TAB PO SCH (16:16)
[2016-06-21 19:29] VITALS: BP 125/67; PULSE 61; RESP 18; TEMP 98; O2SAT 95
[2016-06-21] MEDS: CYCLOBENZAPRINE HCL 10 MG TAB PO PRN (20:22)
[2016-06-21] MEDS: NIACIN 500 MG EXTENDED RELEASE TAB PO SCH (20:28)
[2016-06-21 23:00] VITALS: BP 122/64; PULSE 65; RESP 16; TEMP 98.6; O2SAT 95
[2016-06-22] MEDS: CYCLOBENZAPRINE HCL 10 MG TAB PO PRN (03:47)
[2016-06-22] MEDS: ACETAMINOPHEN/HYDROcodone 325 MG/10 MG TAB PO PRN ×4 (03:48→18:32)
[2016-06-22 04:00] VITALS: BP 138/73; PULSE 64; RESP 18; TEMP 96.9; O2SAT 94
[2016-06-22 07:26] VITALS: BP 124/58; PULSE 51; RESP 20; TEMP 96; O2SAT 94
[2016-06-22 07:27] LABS: INTERNATIONAL NORMALIZED RATIO 2.5 RATIO; PROTHROMBIN TIME - PATIENT 28.2 SEC (9.8-11.6)
[2016-06-22] MEDS: SODIUM CHLORIDE 0.9% FLUSH 5 ML FLUSH FLUSH SCH ×2 (09:00→21:00)
[2016-06-22] MEDS: FUROSEMIDE 40 MG TAB PO SCH (09:52)
[2016-06-22] MEDS: ISOSORBIDE MONONITRATE 30 MG TAB PO SCH (09:52)
[2016-06-22] MEDS: PRAVASTATIN SOD 40 MG TAB PO SCH (09:52)
[2016-06-22] MEDS: POTASSIUM CHLORIDE 10 MEQ CONTROLLED RELEASE TAB PO SCH (09:52)
[2016-06-22] MEDS: AMIODARONE 200 MG TAB PO SCH (09:52)
[2016-06-22] MEDS: FERROUS SULFATE 325 MG (65 MG ELEMENTAL IRON) TAB PO SCH (09:53)
[2016-06-22] MEDS: LISINOPRIL 10 MG TAB PO SCH (09:53)
[2016-06-22] MEDS: PANTOPRAZOLE SOD 40 MG DELAYED RELEASE TAB PO SCH (09:53)
[2016-06-22] MEDS ORDERED: PNEUMOCOCCAL POLYVALENT INJ 25 MCG/0.5 ML SYR IM ONE (10:00)
--- NOTE | 2016-06-22 11:30 | HHI.PR ---
Subjective Remarks C/o constipation last BM was 3 days ago. Also complaints of muscle spasm and stiffness. Will increase flexeril. Seen by PT, patient is not able to ambulate. PT recommends rehab. Patient without new motor deficit. No n/v. Denies cp, sob. Objective Vitals Vital Signs Date Time Temp Pulse Resp B/P Pulse Ox O2 Delivery O2 Flow Rate FiO2 06/22/16 07:26 96.0 51 20 124/58 94 06/22/16 04:48 18 06/22/16 04:00 96.9 64 18 138/73 94 06/21/16 23:00 98.6 65 16 122/64 95 06/21/16 19:29 98.0 61 18 125/67 95 06/21/16 16:00 97.3 64 18 104/65 92 06/21/16 12:00 98.9 61 18 108/65 93 I/O 06/21/16 06/21/16 06/21/16 06/22/16 06/22/16 06/22/16 07:00 15:00 23:00 07:00 15:00 23:00 Intake Total 600 ml Balance 600 ml Intake Oral 600 ml # Voids 2 0 0 # Bowel Movements 0 Result Diagram: 06/20/16 0900 06/21/16 0705 Objective Remarks GENERAL: Well-nourished, well-developed elderly male patient in [facility]. SKIN: Warm and dry. No rash. HEAD: Normocephalic. Atraumatic. NECK: Supple. Trachea midline. CARDIOVASCULAR: Regular rate and rhythm. S1, S2 noted. No murmur appreciated. RESPIRATORY: No accessory muscle use. Clear to auscultation. Breath sounds equal bilaterally. GASTROINTESTINAL: Abdomen soft, non-tender, nondistended. Normoactive bowel sounds x4. MUSCULOSKELETAL: No obvious deformities. Extremities without clubbing, cyanosis , or edema. Diffuse lumbar paraspinous muscle tenderness to palpation. Unable to lift bilateral lower extremities off the bed secondary to low back pain. NEUROLOGICAL: Awake and alert. No obvious cranial nerve deficits. Motor grossly within normal limits. 5/5 muscle strength in bilateral upper and lower extremities. Normal speech. PSYCHIATRIC: Appropriate mood and affect; insight and judgment normal. A/P Assessment and Plan 75-year-old male with hx of afib on Coumadin, HTN, HLD, CHF, CAD, thoracic aortic aneurysm s/p repair 2014, CABG 2014, aortic stenosis s/p porcine valve 2015, GERD, presents with 2 week history of low back pain and inability to ambulate -Lumbar Radiculopathy, Spasms, with 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 FAILED OUTPATIENT treatment with PCP. Now associated with new neurologic deficit including inability to ambulate and severe muscle spasm. -Consulted Neurosurgery, Unfortunately the patient is a poor surgical candidate, and high risk to be off Coumadin, recommends conservative treatment -Consult PT, patient would prefer to go home with [facility], case management consulted -Continue pain control with [place] prn, IV Dilaudid and IV Toradol prn breakthrough; increase Flexeril to 10 mg po q8hrs scheduled for spams; Heating pad -Patient still unable to ambulate today, monitor progress. Seen by PT recommends rehab -Constipation: Laxatives/stool softeners. -Paroxysmal Atrial fibrillation followed by Dr. Auguste, Coumadin levels managed by Dr. Auguste -INR therapeutic. Continue Coumadin with pharmacy consult , amiodarone and bisoprolol. -Hypertension - continue lisinopril -Congestive heart failure with unknown ejection fraction, appears fluid compensated currently -History of myocardial infarction 2 -Thoracic aortic aneurysm status post open repair in February 2015 in [place] -Coronary artery bypass grafting in 2014 in [place] -Aortic stenosis status post porcine valve in 2014 and [place] -Hypertension -Hyperlipidemia -GERD Continue home medications as appropriate. DVT Prophylaxis: on Coumadin Carol Jordan MD Jun 22, 2016 11:30
[2016-06-22] MEDS: CYCLOBENZAPRINE HCL 10 MG TAB PO SCH (11:42)
[2016-06-22] MEDS: BISOPROLOL FUMARATE 5 MG TAB PO SCH (11:46)
[2016-06-22] MEDS ORDERED: NORC5TAB PO (11:51)
[2016-06-22] MEDS ORDERED: SENN1TAB PO (11:51)
[2016-06-22] MEDS ORDERED: CYCL1TAB29 PO (11:51)
--- NOTE | 2016-06-22 11:51 | HHI.DS ---
Discharge Summary Admission Date Jun 20, 2016 at 11:54 Discharge Date: Jun 26, 2016 Admitting Diagnosis low back pain (1) Spinal stenosis ICD Code: M48.00 Diagnosis: Principal (2) Low back strain ICD Code: S39.012A Diagnosis: Principal Procedures none Brief History - From Admission This is a pleasant 75 year-old female with past medical history of atrial fibrillation, coronary artery disease, thoracic aortic aneurysm repair, porcine aortic valve on Coumadin, who presents to the ER today complaining of a two-week history of back pain now associated with inability to ambulate. He had been seen in the ER several days ago for this. His PCP Dr. olson ordered an MRI of the lumbar spine which was obtained 2 days ago and shows moderate spinal stenosis at the L2 to L3 levels, bulging disc at L3 to L4 which is effacing the ventral thecal sac, and moderate to severe bilateral foraminal narrowing at the L4 to L5 level. The patient has back pain that is radiating down both legs. He also has severe muscle spasms. The pain has been getting worse in outpatient setting. It has been taking him an hour to get ready every morning with his . This morning he was unable to ambulate or get out of bed. Every time he tries to move his leg he gets severe muscle spasm. His called [facility] and brought him to the emergency department. He had been taking Tylenol with Codeine for the pain. The patient also has constipation. He denies numbness or tingling in the sagittal region or bowel or bladder incontinence. The ER physician did discuss with neurosurgery rn lactation Dr. López who agreed for the patient to be transferred to the [facility] for neurosurgical evaluation. CBC/BMP: 06/20/16 0900 06/21/16 0705 Significant Findings Laboratory Tests Test 06/20/16 06/21/16 06/22/16 09:00 07:05 06:43 Mean Corpuscular Hemoglobin 26.9 PG (27.0-34.0) Neutrophils (%) (Auto) 83.2 % (16.0-70.0) Neutrophils # (Auto) 8.1 TH/MM3 (1.8-7.7) Prothrombin Time 25.2 SEC 28.9 SEC 28.2 SEC (9.8-11.6) (9.8-11.6) (9.8-11.6) Estimat Glomerular Filtration 74 ML/MIN (>89) 72 ML/MIN (>89) Rate Random Glucose 127 MG/DL 132 MG/DL (74-106) (74-106) Sodium Level 135 MEQ/L (136-145) Blood Urea Nitrogen 19 MG/DL (7-18) PE at Discharge GENERAL: Well-nourished, well-developed elderly male patient in [place]. SKIN: Warm and dry. No rash. HEAD: Normocephalic. Atraumatic. NECK: Supple. Trachea midline. CARDIOVASCULAR: Regular rate and rhythm. S1, S2 noted. No murmur appreciated. RESPIRATORY: No accessory muscle use. Clear to auscultation. Breath sounds equal bilaterally. GASTROINTESTINAL: Abdomen soft, non-tender, nondistended. Normoactive bowel sounds x4. MUSCULOSKELETAL: No obvious deformities. Extremities without clubbing, cyanosis , or edema. Diffuse lumbar paraspinous muscle tenderness to palpation. Unable to lift bilateral lower extremities off the bed secondary to low back pain. NEUROLOGICAL: Awake and alert. No obvious cranial nerve deficits. Motor grossly within normal limits. 5/5 muscle strength in bilateral upper and lower extremities. Normal speech. PSYCHIATRIC: Appropriate mood and affect; insight and judgment normal. 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 FAILED OUTPATIENT treatment with PCP. Now associated with new neurologic deficit including inability to ambulate and severe muscle spasm. -Consulted Neurosurgery, Unfortunately the patient is a poor surgical candidate, and high risk to be off Coumadin, recommends conservative treatment -Consult PT, patient would prefer to go home with [facility], case management consulted -Continue pain control with [place] prn, IV Dilaudid and IV Toradol prn breakthrough; increase Flexeril to 10 mg po q8hrs scheduled for spams; Heating pad -Patient still unable to ambulate today, monitor progress. Seen by PT recommends rehab -Constipation: Laxatives/stool softeners. Will try laxatives/enema, discussed with the nurse and patient. If no response we will consider holding laxatives and starting meds for opioid induced constipation -Vit D deficiency. Start ergocalciferol. -Vit B into a lower side. Will start B12 supplement. Likely change in color of the urine is from B12, but will check UA -Paroxysmal Atrial fibrillation followed by Dr. Auguste, Coumadin levels managed by Dr. Auguste -INR therapeutic. Continue Coumadin with pharmacy consult , amiodarone and bisoprolol. -Hypertension - continue lisinopril -Congestive heart failure with unknown ejection fraction, appears fluid compensated currently -History of myocardial infarction 2 -Thoracic aortic aneurysm status post open repair in February 2015 in [place] -Coronary artery bypass grafting in 2014 in [place] -Aortic stenosis status post porcine valve in 2014 and [place] -Hypertension -Hyperlipidemia -GERD Continue home medications as appropriate. DVT Prophylaxis: on Coumadin Improved. Has a BM before DC. Was DC to SNF in fairly good condition . To follow up as OP with PCP and consultants. Pt Condition on Discharge: Stable Discharge Disposition: Discharge to SNF Discharge Time: > 30 minutes Discharge Instructions DIET: Follow Instructions for: Heart Healthy Diet Activities you can perform: Regular-No Restrictions Follow up Referrals: Pain Management - 1 Week PCP Follow-up - 3-5 Days New Medications: Hydrocodone-Acetaminophen (Jessie) 5-325 mg Tab 1 TAB PO Q4H PRN PAIN #30 Ref 0 TAB Cyanocobalamin (Vitamin B-12) 1,000 Mcg Tab 1000 MCG PO DAILY vit b12 supplement #30 TAB Cyclobenzaprine (Flexeril) 10 Mg Tab 10 MG PO Q8H muscle spasm #20 TAB Ergocalciferol (Drisdol) 50,000 Unit Cap 46925 UNITS PO Q7D vit d defici #8 CAP Sennosides-Docusate Sodium (Senna Plus 8.6-50 mg) 1 Tab Tab 2 TAB PO BID Constipation #60 TAB Continued Medications: Amiodarone (Amiodarone) 200 Mg Tab 200 MG PO DAILY Regulate Heart Beat #30 Ref [address] (Aspir-81) 81 Mg Tabdr Bisoprolol (Bisoprolol) 10 Mg Tab 10 MG PO DAILY Blood Pressure Management #30 Ref 0 TAB Calcium Carbonate (Calcium) 600 Mg Tab Cinnamon (Cinnamon) 500 Mg Tab 500 MG PO DAILY #1 BOTTLE Ferrous Sulfate (Ferrous Sulfate) 325 Mg Tab 325 MG PO DAILY Nutritional Supplement #30 Ref 0 TAB Flaxseed (Linseed) (Flax Seed Oil) 1,000 Mg Cap Furosemide (Furosemide) 40 Mg Tab 40 MG PO DAILY #60 Ref 0 TAB Glucosamine-Fish Oil-Epa-Dha (Glucosamine & Fish Oil [id number] mg) 1 Cap Cap Isosorbide Mononitrate ER (Isosorbide Mononitrate ER) 30 Mg Colin 30 MG PO DAILY Prevent Chest Pain #30 Ref 0 TAB Lisinopril (Lisinopril) 10 Mg Tab 10 MG PO BID #30 Ref 0 TAB Multiple Vitamins W/ Minerals (Multivitamin Adult) 1 Chw Chw Niacin ER (Niaspan) 500 Mg Tab 500 MG PO HS Cholesterol Management #30 Ref 0 TAB [place]-3 Fatty Acids (Fish Oil) 1,200 Mg Cap 1 TAB PO DAILY Omeprazole (Omeprazole) 40 Mg Cap 40 MG PO DAILY #30 Ref 0 CAP Potassium Chloride ER (Potassium Chloride CR) 10 Meq Tab 10 MEQ PO DAILY TAB Simvastatin (Zocor) 40 Mg Tab 20 MG PO DAILY Cholesterol Management #30 Ref 0 TAB Warfarin (Warfarin) 3 Mg Tab 3 MG PO DAILY Blood Clot Prevention #30 Ref 0 TAB Discontinued Medications: Acetaminophen (Tylenol 8 Hour Arthritis) 650 Mg Tab Carol Jordan MD Jun 22, 2016 11:51
--- NOTE | 2016-06-22 11:51 | HHI.DCPOC ---
Discharge Care Plan Goals to Promote Your Health * To prevent worsening of your condition and complications * To maintain your health at the optimal level Directions to Meet Your Goals Take your medications as prescribed Follow your dietary instruction Follow activity as directed Keep your appointments as scheduled Take your immunizations and boosters as scheduled If your symptoms worsen call your PCP, if no PCP go to Urgent Care Center or Emergency Room Smoking is Dangerous to Your Health. Avoid second hand smoke Call the 24-hour hour crisis hotline for domestic abuse at Carol Jordan MD Jun 22, 2016 11:51
[2016-06-22] MEDS ORDERED: DOCUSATE SODIUM 50 MG/SENNA 8.6 MG TAB PO PRN (12:00)
[2016-06-22] MEDS ORDERED: POLYETHYLENE GLYCOL 17 GM PKG PO ONE (12:00)
[2016-06-22] MEDS ORDERED: BISACODYL 10 MG SUPP PR PRN (12:00)
[2016-06-22 12:59] VITALS: BP 104/69; PULSE 70; RESP 17; TEMP 97.5; O2SAT 91
[2016-06-22 15:52] VITALS: BP 123/73; PULSE 80; RESP 16; TEMP 97.7; O2SAT 92
[2016-06-22] MEDS: WARFARIN SOD 3 MG TAB PO SCH (15:59)
[2016-06-22] MEDS: NEOMYCIN/POLYMYXIN/BACITRACIN OINT 15 GM TUBE TOPICAL SCH (15:59)
[2016-06-22 20:00] VITALS: BP 117/71; PULSE 63; RESP 16; TEMP 97.9; O2SAT 92
[2016-06-22] MEDS ORDERED: ERGOCALCIFEROL (VIT D2) 50,000 UNIT CAP PO SCH (21:00)
[2016-06-22] MEDS ORDERED: CYANOCOBALAMIN 1000 MCG/ML VIAL IM SCH (22:00)
[2016-06-23 00:30] VITALS: BP 111/64; PULSE 64; RESP 16; TEMP 98; O2SAT 93
[2016-06-23] MEDS: CYCLOBENZAPRINE HCL 10 MG TAB PO SCH ×4 (00:55→21:04)
[2016-06-23] MEDS: ACETAMINOPHEN/HYDROcodone 325 MG/10 MG TAB PO PRN ×3 (00:55→16:26)
[2016-06-23] MEDS: LISINOPRIL 10 MG TAB PO SCH ×3 (00:56→21:04)
[2016-06-23] MEDS: NIACIN 500 MG EXTENDED RELEASE TAB PO SCH ×2 (00:56→21:04)
[2016-06-23 04:30] VITALS: BP 120/74; PULSE 61; RESP 16; TEMP 97.6; O2SAT 93
[2016-06-23 06:50] LABS: INTERNATIONAL NORMALIZED RATIO 3.3 RATIO; PROTHROMBIN TIME - PATIENT 38.4 SEC (9.8-11.6)
[2016-06-23 08:00] VITALS: BP 141/84; PULSE 60; RESP 20; TEMP 97.1; O2SAT 92
[2016-06-23] MEDS: SODIUM CHLORIDE 0.9% FLUSH 5 ML FLUSH FLUSH SCH ×2 (09:01→21:05)
[2016-06-23] MEDS: FERROUS SULFATE 325 MG (65 MG ELEMENTAL IRON) TAB PO SCH (09:01)
[2016-06-23] MEDS: DOCUSATE SODIUM 50 MG/SENNA 8.6 MG TAB PO SCH ×2 (09:01→21:04)
[2016-06-23] MEDS: POTASSIUM CHLORIDE 10 MEQ CONTROLLED RELEASE TAB PO SCH (09:01)
[2016-06-23] MEDS: AMIODARONE 200 MG TAB PO SCH (09:01)
[2016-06-23] MEDS: CYANOCOBALAMIN 1,000 MCG TAB PO SCH (09:01)
[2016-06-23] MEDS: ISOSORBIDE MONONITRATE 30 MG TAB PO SCH (09:01)
[2016-06-23] MEDS: PANTOPRAZOLE SOD 40 MG DELAYED RELEASE TAB PO SCH (09:02)
[2016-06-23] MEDS: FUROSEMIDE 40 MG TAB PO SCH (09:02)
[2016-06-23] MEDS: PRAVASTATIN SOD 40 MG TAB PO SCH (09:02)
[2016-06-23] MEDS: POLYETHYLENE GLYCOL 17 GM PKG PO SCH (09:05)
[2016-06-23] MEDS: NEOMYCIN/POLYMYXIN/BACITRACIN OINT 15 GM TUBE TOPICAL SCH (09:07)
[2016-06-23] MEDS: BISOPROLOL FUMARATE 5 MG TAB PO SCH (09:19)
[2016-06-23] MEDS ORDERED: VITA10002 PO (09:55)
[2016-06-23] MEDS ORDERED: DRIS50002 PO (09:55)
--- NOTE | 2016-06-23 10:01 | HHI.PR ---
Subjective Remarks Says he has less muscle spasm and flexeril is helping. However he says she feels confused at times. Still with pain and inability to transfer. No n/v/d. Has constipation. Per nurse noted change in the color of the urine, he doesn't have any suprapubic pain or changein urinary habit. No fever or chills. Likely urine color changed from B12 supplement Objective Vitals Vital Signs Date Time Temp Pulse Resp B/P Pulse Ox O2 Delivery O2 Flow Rate FiO2 06/23/16 08:00 97.1 60 20 141/84 92 06/23/16 04:30 97.6 61 16 120/74 93 06/23/16 00:30 98.0 64 16 111/64 93 06/22/16 20:00 97.9 63 16 117/71 92 06/22/16 15:52 97.7 80 16 123/73 92 06/22/16 12:59 97.5 70 17 104/69 91 I/O 06/22/16 06/22/16 06/22/16 06/23/16 06/23/16 06/23/16 07:00 15:00 23:00 07:00 15:00 23:00 Intake Total 480 ml 480 ml Output Total 1 ml 300 ml 275 ml Balance 479 ml 180 ml -275 ml Intake Oral 480 ml 480 ml Output Urine Total 1 ml 300 ml 275 ml # Voids 0 Result Diagram: 06/20/16 0900 06/21/16 0705 Objective Remarks GENERAL: Well-nourished, well-developed elderly male patient in [facility]. SKIN: Warm and dry. No rash. HEAD: Normocephalic. Atraumatic. NECK: Supple. Trachea midline. CARDIOVASCULAR: Regular rate and rhythm. S1, S2 noted. No murmur appreciated. RESPIRATORY: No accessory muscle use. Clear to auscultation. Breath sounds equal bilaterally. GASTROINTESTINAL: Abdomen soft, non-tender, nondistended. Normoactive bowel sounds x4. MUSCULOSKELETAL: No obvious deformities. Extremities without clubbing, cyanosis , or edema. Diffuse lumbar paraspinous muscle tenderness to palpation. Unable to lift bilateral lower extremities off the bed secondary to low back pain. NEUROLOGICAL: Awake and alert. No obvious cranial nerve deficits. Motor grossly within normal limits. 5/5 muscle strength in bilateral upper and lower extremities. Normal speech. PSYCHIATRIC: Appropriate mood and affect; insight and judgment normal. 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 FAILED OUTPATIENT treatment with PCP. Now associated with new neurologic deficit including inability to ambulate and severe muscle spasm. -Consulted Neurosurgery, Unfortunately the patient is a poor surgical candidate, and high risk to be off Coumadin, recommends conservative treatment -Consult PT, patient would prefer to go home with [facility], case management consulted -Continue pain control with [place] prn, IV Dilaudid and IV Toradol prn breakthrough; increase Flexeril to 10 mg po q8hrs scheduled for spams; Heating pad -Patient still unable to ambulate today, monitor progress. Seen by PT recommends rehab Vit D deficiency. Start ergocalciferol. Vit B into a lower side. Will start B12 supplement. Likely change in color of the urine is from B12, but will check UA -Constipation: Laxatives/stool softeners. -Paroxysmal Atrial fibrillation followed by Dr. Auguste, Coumadin levels managed by Dr. Auguste -INR therapeutic. Continue Coumadin with pharmacy consult , amiodarone and bisoprolol. -Hypertension - continue lisinopril -Congestive heart failure with unknown ejection fraction, appears fluid compensated currently -History of myocardial infarction 2 -Thoracic aortic aneurysm status post open repair in February 2015 in [place] -Coronary artery bypass grafting in 2014 in [place] -Aortic stenosis status post porcine valve in 2014 and [place] -Hypertension -Hyperlipidemia -GERD Continue home medications as appropriate. DVT Prophylaxis: on Coumadin Plan to DC to SNF Carol Jordan MD Jun 23, 2016 10:01
[2016-06-23 11:30] VITALS: BP_SYST 60; BP_SYST 88; BP_DIAS 55; PULSE 66; RESP 20; TEMP 97.5; O2SAT 94
[2016-06-23] MEDS: LACTULOSE SYRUP 20 GM/30 ML CUP PO PRN (12:02)
[2016-06-23] MEDS ORDERED: SOD PHOSPHATE/SOD BIPHOSPHATE (ADULT) ENEMA 133ML PR ONE (12:30)
[2016-06-23 16:00] VITALS: BP 112/62; PULSE 64; RESP 18; TEMP 97.1; O2SAT 92
[2016-06-23] MEDS: MAGNESIUM HYDROXIDE SUSP 30 ML CUP PO PRN (16:19)
[2016-06-23 20:00] VITALS: BP 115/75; PULSE 66; RESP 15; TEMP 97.2; O2SAT 91
[2016-06-23 20:51] LABS: BLOOD, URINE NEG (NEG); COMMENT (UR) CULT NOT INDICATED; CULTURE IF INDICATED CULT NOT INDICATED; GLUCOSE,URINE NEG (NEG); HYALINE CAST, URINE 6 /lpf (RARE); KETONE, URINE TRACE mg/dL (NEG); MUCUS URINE FEW /lpf (OCC); NITRITE,URINE NEG (NEG); PH, URINE 5.5 (5.0-8.5); SQUAMOUS EPITHELIAL CELL URINE <1 /hpf (0-5); URINE COLOR YELLOW (YELLW/STRAW)
[2016-06-24] VITALS: BP 137/88; PULSE 63; RESP 17; TEMP 98.7; O2SAT 93
[2016-06-24 04:00] VITALS: BP 141/67; PULSE 52; RESP 18; TEMP 97.3; O2SAT 97
[2016-06-24] MEDS: CYCLOBENZAPRINE HCL 10 MG TAB PO SCH ×3 (04:36→21:23)
[2016-06-24 07:25] LABS: INTERNATIONAL NORMALIZED RATIO 4.3 RATIO; PROTHROMBIN TIME - PATIENT 51.1 SEC (9.8-11.6)
[2016-06-24 08:00] VITALS: BP_SYST 138; BP_DIAS 76; BP_DIAS 78; PULSE 106; PULSE 70; RESP 18; RESP 33; TEMP 96.9; TEMP 97.1; O2SAT 96; O2SAT 97
[2016-06-24] MEDS: POLYETHYLENE GLYCOL 17 GM PKG PO SCH (09:00)
[2016-06-24] MEDS: PRAVASTATIN SOD 40 MG TAB PO SCH (09:16)
[2016-06-24] MEDS: LISINOPRIL 10 MG TAB PO SCH ×2 (09:16→21:23)
[2016-06-24] MEDS: FERROUS SULFATE 325 MG (65 MG ELEMENTAL IRON) TAB PO SCH (09:16)
[2016-06-24] MEDS: ISOSORBIDE MONONITRATE 30 MG TAB PO SCH (09:16)
[2016-06-24] MEDS: CYANOCOBALAMIN 1,000 MCG TAB PO SCH (09:16)
[2016-06-24] MEDS: DOCUSATE SODIUM 50 MG/SENNA 8.6 MG TAB PO SCH ×2 (09:16→21:23)
[2016-06-24] MEDS: POTASSIUM CHLORIDE 10 MEQ CONTROLLED RELEASE TAB PO SCH (09:16)
[2016-06-24] MEDS: FUROSEMIDE 40 MG TAB PO SCH (09:16)
[2016-06-24] MEDS: AMIODARONE 200 MG TAB PO SCH (09:17)
[2016-06-24] MEDS: BISOPROLOL FUMARATE 5 MG TAB PO SCH (09:17)
[2016-06-24] MEDS: PANTOPRAZOLE SOD 40 MG DELAYED RELEASE TAB PO SCH (09:17)
--- NOTE | 2016-06-24 10:39 | HHI.PR ---
Subjective Remarks Did not have a BM yet. No n/v/d/c. Pain is better controlled. Able t tolerate PT. no fever or chills./ No n/v/d. Objective Vitals Vital Signs Date Time Temp Pulse Resp B/P Pulse Ox O2 Delivery O2 Flow Rate FiO2 06/24/16 08:00 97.1 106 33 138/78 96 06/24/16 04:00 97.3 52 18 141/67 97 06/24/16 00:00 98.7 63 17 137/88 93 06/23/16 20:00 97.2 66 15 115/75 91 06/23/16 16:00 97.1 64 18 112/62 92 06/23/16 11:30 97.5 66 20 88/55 94 60/55 I/O 06/23/16 06/23/16 06/23/16 06/24/16 06/24/16 06/24/16 06:59 14:59 22:59 06:59 14:59 22:59 Intake Total 960 ml 240 ml 960 ml Output Total 275 ml 300 ml 200 ml 600 ml 0 ml Balance -275 ml 660 ml -200 ml -360 ml 960 ml Intake Oral 960 ml 240 ml 960 ml Output Urine Total 275 ml 300 ml 200 ml 600 ml Stool Total 0 ml # Voids 2 1 2 # Bowel Movements 0 0 Result Diagram: 06/20/16 0900 06/21/16 0705 Objective Remarks GENERAL: Well-nourished, well-developed elderly male patient in [facility]. SKIN: Warm and dry. No rash. HEAD: Normocephalic. Atraumatic. NECK: Supple. Trachea midline. CARDIOVASCULAR: Regular rate and rhythm. S1, S2 noted. No murmur appreciated. RESPIRATORY: No accessory muscle use. Clear to auscultation. Breath sounds equal bilaterally. GASTROINTESTINAL: Abdomen soft, non-tender, nondistended. Normoactive bowel sounds x4. MUSCULOSKELETAL: No obvious deformities. Extremities without clubbing, cyanosis , or edema. Diffuse lumbar paraspinous muscle tenderness to palpation. Unable to lift bilateral lower extremities off the bed secondary to low back pain. NEUROLOGICAL: Awake and alert. No obvious cranial nerve deficits. Motor grossly within normal limits. 5/5 muscle strength in bilateral upper and lower extremities. Normal speech. PSYCHIATRIC: Appropriate mood and affect; insight and judgment normal. 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 FAILED OUTPATIENT treatment with PCP. Now associated with new neurologic deficit including inability to ambulate and severe muscle spasm. -Consulted Neurosurgery, Unfortunately the patient is a poor surgical candidate, and high risk to be off Coumadin, recommends conservative treatment -Consult PT, patient would prefer to go home with [facility], case management consulted -Continue pain control with [place] prn, IV Dilaudid and IV Toradol prn breakthrough; increase Flexeril to 10 mg po q8hrs scheduled for spams; Heating pad -Patient still unable to ambulate today, monitor progress. Seen by PT recommends rehab Vit D deficiency. Start ergocalciferol. Vit B into a lower side. Will start B12 supplement. Likely change in color of the urine is from B12, but will check UA -Constipation: Laxatives/stool softeners. -Paroxysmal Atrial fibrillation followed by Dr. Auguste, Coumadin levels managed by Dr. Auguste -INR therapeutic. Continue Coumadin with pharmacy consult , amiodarone and bisoprolol. -Hypertension - continue lisinopril -Congestive heart failure with unknown ejection fraction, appears fluid compensated currently -History of myocardial infarction 2 -Thoracic aortic aneurysm status post open repair in February 2015 in [place] -Coronary artery bypass grafting in 2014 in [place] -Aortic stenosis status post porcine valve in 2014 and [place] -Hypertension -Hyperlipidemia -GERD Continue home medications as appropriate. DVT Prophylaxis: on Coumadin Plan to DC to SNF after he has a BM Carol Jordan MD Jun 24, 2016 10:39
[2016-06-24] MEDS: NEOMYCIN/POLYMYXIN/BACITRACIN OINT 15 GM TUBE TOPICAL SCH (11:56)
[2016-06-24] MEDS: SODIUM CHLORIDE 0.9% FLUSH 5 ML FLUSH FLUSH SCH ×2 (11:57→21:23)
[2016-06-24 12:00] VITALS: BP 114/71; PULSE 63; RESP 20; TEMP 97.1; O2SAT 93
[2016-06-24] MEDS: LACTULOSE SYRUP 20 GM/30 ML CUP PO PRN (13:08)
[2016-06-24] MEDS: ACETAMINOPHEN/HYDROcodone 325 MG/10 MG TAB PO PRN (13:11)
[2016-06-24 16:00] VITALS: BP 134/82; PULSE 108; RESP 20; TEMP 98.1; O2SAT 96
[2016-06-24 20:00] VITALS: BP 150/78; PULSE 65; RESP 16; TEMP 96.2; O2SAT 92
[2016-06-24] MEDS ORDERED: MINERAL OIL ENEMA 118 ML BTL RECTAL ONE (20:00)
[2016-06-24] MEDS: NIACIN 500 MG EXTENDED RELEASE TAB PO SCH (21:22)
[2016-06-25] VITALS: BP 137/75; PULSE 70; RESP 16; TEMP 96.6; O2SAT 92
[2016-06-25] MEDS: ACETAMINOPHEN/HYDROcodone 325 MG/10 MG TAB PO PRN ×2 (03:09→10:26)
[2016-06-25] MEDS: CYCLOBENZAPRINE HCL 10 MG TAB PO SCH ×3 (03:09→21:27)
[2016-06-25 04:00] VITALS: BP 150/81; PULSE 66; RESP 17; TEMP 96.5; O2SAT 94
[2016-06-25 07:36] VITALS: BP 133/78; PULSE 70; RESP 20; TEMP 96.2; O2SAT 93
[2016-06-25] MEDS: POLYETHYLENE GLYCOL 17 GM PKG PO SCH (08:47)
[2016-06-25] MEDS: POTASSIUM CHLORIDE 10 MEQ CONTROLLED RELEASE TAB PO SCH (08:48)
[2016-06-25] MEDS: LISINOPRIL 10 MG TAB PO SCH ×2 (08:48→21:27)
[2016-06-25] MEDS: AMIODARONE 200 MG TAB PO SCH (08:48)
[2016-06-25] MEDS: PANTOPRAZOLE SOD 40 MG DELAYED RELEASE TAB PO SCH (08:48)
[2016-06-25] MEDS: FUROSEMIDE 40 MG TAB PO SCH (08:48)
[2016-06-25] MEDS: FERROUS SULFATE 325 MG (65 MG ELEMENTAL IRON) TAB PO SCH (08:48)
[2016-06-25] MEDS: ISOSORBIDE MONONITRATE 30 MG TAB PO SCH (08:48)
[2016-06-25] MEDS: CYANOCOBALAMIN 1,000 MCG TAB PO SCH (08:48)
[2016-06-25] MEDS: DOCUSATE SODIUM 50 MG/SENNA 8.6 MG TAB PO SCH ×2 (08:48→21:27)
[2016-06-25] MEDS: PRAVASTATIN SOD 40 MG TAB PO SCH (08:48)
[2016-06-25] MEDS: BISOPROLOL FUMARATE 5 MG TAB PO SCH (08:54)
[2016-06-25] MEDS: NEOMYCIN/POLYMYXIN/BACITRACIN OINT 15 GM TUBE TOPICAL SCH (08:58)
[2016-06-25] MEDS ORDERED: MINERAL OIL ENEMA 118 ML BTL RECTAL PRN (09:00)
[2016-06-25] MEDS: SODIUM CHLORIDE 0.9% FLUSH 5 ML FLUSH FLUSH SCH ×2 (09:00→21:27)
[2016-06-25 09:15] LABS: INTERNATIONAL NORMALIZED RATIO 4.1 RATIO; PROTHROMBIN TIME - PATIENT 48.2 SEC (9.8-11.6)
[2016-06-25] MEDS: MAGNESIUM HYDROXIDE SUSP 30 ML CUP PO PRN (10:32)
--- NOTE | 2016-06-25 11:00 | HHI.PR ---
Subjective Remarks No BM yet. Pass gas. Has no abdominal pain. Eliel n/v. No ever or chills. Says pain is better controlled. Will try laxatives/enema, discussed with the nurse and patient. If no response we will consider holding laxatives and starting meds for opioid induced constipation Objective Vitals Vital Signs Date Time Temp Pulse Resp B/P Pulse Ox O2 Delivery O2 Flow Rate FiO2 06/25/16 07:36 96.2 70 20 133/78 93 Automatic Cuff 06/25/16 04:09 19 06/25/16 04:00 96.5 66 17 150/81 94 06/25/16 00:00 96.6 70 16 137/75 92 06/24/16 20:00 96.2 65 16 150/78 92 06/24/16 16:00 98.1 108 20 134/82 96 06/24/16 12:00 97.1 63 20 114/71 93 I/O 06/24/16 06/24/16 06/24/16 06/25/16 06/25/16 06/25/16 07:00 15:00 23:00 07:00 15:00 23:00 Intake Total 240 ml 2160 ml 480 ml 120 ml Output Total 600 ml 300 ml 500 ml 300 ml Balance -360 ml 1860 ml -20 ml -180 ml Intake Oral 240 ml 2160 ml 480 ml 120 ml Output Urine Total 600 ml 300 ml 500 ml 300 ml Stool Total 0 ml # Voids 1 2 # Bowel Movements 0 0 Result Diagram: 06/21/16 0705 Objective Remarks GENERAL: Well-nourished, well-developed elderly male patient in [facility]. SKIN: Warm and dry. No rash. HEAD: Normocephalic. Atraumatic. NECK: Supple. Trachea midline. CARDIOVASCULAR: Regular rate and rhythm. S1, S2 noted. No murmur appreciated. RESPIRATORY: No accessory muscle use. Clear to auscultation. Breath sounds equal bilaterally. GASTROINTESTINAL: Abdomen soft, non-tender, nondistended. Normoactive bowel sounds x4. MUSCULOSKELETAL: No obvious deformities. Extremities without clubbing, cyanosis , or edema. Diffuse lumbar paraspinous muscle tenderness to palpation. Unable to lift bilateral lower extremities off the bed secondary to low back pain. NEUROLOGICAL: Awake and alert. No obvious cranial nerve deficits. Motor grossly within normal limits. 5/5 muscle strength in bilateral upper and lower extremities. Normal speech. PSYCHIATRIC: Appropriate mood and affect; insight and judgment normal. 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 FAILED OUTPATIENT treatment with PCP. Now associated with new neurologic deficit including inability to ambulate and severe muscle spasm. -Consulted Neurosurgery, Unfortunately the patient is a poor surgical candidate, and high risk to be off Coumadin, recommends conservative treatment -Consult PT, patient would prefer to go home with [facility], case management consulted -Continue pain control with [place] prn, IV Dilaudid and IV Toradol prn breakthrough; increase Flexeril to 10 mg po q8hrs scheduled for spams; Heating pad -Patient still unable to ambulate today, monitor progress. Seen by PT recommends rehab -Constipation: Laxatives/stool softeners. Will try laxatives/enema, discussed with the nurse and patient. If no response we will consider holding laxatives and starting meds for opioid induced constipation -Vit D deficiency. Start ergocalciferol. -Vit B into a lower side. Will start B12 supplement. Likely change in color of the urine is from B12, but will check UA -Paroxysmal Atrial fibrillation followed by Dr. Auguste, Coumadin levels managed by Dr. Auguste -INR therapeutic. Continue Coumadin with pharmacy consult , amiodarone and bisoprolol. -Hypertension - continue lisinopril -Congestive heart failure with unknown ejection fraction, appears fluid compensated currently -History of myocardial infarction 2 -Thoracic aortic aneurysm status post open repair in February 2015 in [place] -Coronary artery bypass grafting in 2014 in [place] -Aortic stenosis status post porcine valve in 2014 and [place] -Hypertension -Hyperlipidemia -GERD Continue home medications as appropriate. DVT Prophylaxis: on Coumadin Plan to DC to SNF after he has a BM Carol Jordan MD Jun 25, 2016 11:00
[2016-06-25 11:28] VITALS: BP 106/65; PULSE 65; RESP 20; TEMP 95.8; O2SAT 94
[2016-06-25 15:50] VITALS: BP 84/61; PULSE 62; RESP 20; TEMP 96.5; O2SAT 96
[2016-06-25] MEDS: HYDROmorphone HCL PF 1 MG/ML VIAL IV PRN (17:31)
[2016-06-25 20:00] VITALS: BP 110/75; PULSE 71; RESP 20; TEMP 97.4; O2SAT 94
[2016-06-25] MEDS: NIACIN 500 MG EXTENDED RELEASE TAB PO SCH (21:27)
[2016-06-26] VITALS: BP 145/78; PULSE 59; RESP 18; TEMP 97.1; O2SAT 94
[2016-06-26 04:00] VITALS: BP 104/65; PULSE 59; RESP 18; TEMP 96.5; O2SAT 92
[2016-06-26] MEDS: CYCLOBENZAPRINE HCL 10 MG TAB PO SCH ×2 (04:18→12:30)
[2016-06-26] MEDS: ACETAMINOPHEN/HYDROcodone 325 MG/10 MG TAB PO PRN ×3 (04:19→19:52)
[2016-06-26 07:26] VITALS: BP 103/67; PULSE 54; RESP 20; TEMP 96.2; O2SAT 92
[2016-06-26 07:46] LABS: INTERNATIONAL NORMALIZED RATIO 4.5 RATIO; PROTHROMBIN TIME - PATIENT 53.2 SEC (9.8-11.6)
[2016-06-26] MEDS: DOCUSATE SODIUM 50 MG/SENNA 8.6 MG TAB PO SCH (09:19)
[2016-06-26] MEDS: CYANOCOBALAMIN 1,000 MCG TAB PO SCH (09:19)
[2016-06-26] MEDS: ISOSORBIDE MONONITRATE 30 MG TAB PO SCH (09:19)
[2016-06-26] MEDS: PRAVASTATIN SOD 40 MG TAB PO SCH (09:19)
[2016-06-26] MEDS: BISOPROLOL FUMARATE 5 MG TAB PO SCH (09:19)
[2016-06-26] MEDS: AMIODARONE 200 MG TAB PO SCH (09:19)
[2016-06-26] MEDS: FERROUS SULFATE 325 MG (65 MG ELEMENTAL IRON) TAB PO SCH (09:19)
[2016-06-26] MEDS: POLYETHYLENE GLYCOL 17 GM PKG PO SCH (09:19)
[2016-06-26] MEDS: NEOMYCIN/POLYMYXIN/BACITRACIN OINT 15 GM TUBE TOPICAL SCH (09:20)
[2016-06-26] MEDS: POTASSIUM CHLORIDE 10 MEQ CONTROLLED RELEASE TAB PO SCH (09:20)
[2016-06-26] MEDS: PANTOPRAZOLE SOD 40 MG DELAYED RELEASE TAB PO SCH (09:20)
[2016-06-26] MEDS: FUROSEMIDE 40 MG TAB PO SCH (09:20)
[2016-06-26] MEDS: SODIUM CHLORIDE 0.9% FLUSH 5 ML FLUSH FLUSH SCH (09:20)
[2016-06-26] MEDS: LISINOPRIL 10 MG TAB PO SCH (09:20)
[2016-06-26 11:00] VITALS: BP 98/60; PULSE 60; RESP 20; TEMP 95.3; O2SAT 93
--- NOTE | 2016-06-26 12:41 | HHI.PR ---
Subjective Remarks Benedict a BM yesterday. No n/v/d/c. Has back pain fairly controlled by meds. Objective Vitals Vital Signs Date Time Temp Pulse Resp B/P Pulse Ox O2 Delivery O2 Flow Rate FiO2 06/26/16 11:00 95.3 60 20 98/60 93 06/26/16 07:26 96.2 54 20 103/67 92 06/26/16 04:00 96.5 59 18 104/65 92 06/26/16 00:00 97.1 59 18 145/78 94 06/25/16 20:00 97.4 71 20 110/75 94 06/25/16 15:50 96.5 62 20 84/61 96 I/O 06/25/16 06/25/16 06/25/16 06/26/16 06/26/16 06/26/16 07:00 15:00 23:00 07:00 15:00 23:00 Intake Total 120 ml 680 ml Output Total 300 ml 200 ml Balance -180 ml 480 ml Intake Oral 120 ml 680 ml Output Urine Total 300 ml 200 ml # Voids 1 # Bowel Movements 1 3 Objective Remarks GENERAL: Well-nourished, well-developed elderly male patient in [facility]. SKIN: Warm and dry. No rash. HEAD: Normocephalic. Atraumatic. NECK: Supple. Trachea midline. CARDIOVASCULAR: Regular rate and rhythm. S1, S2 noted. No murmur appreciated. RESPIRATORY: No accessory muscle use. Clear to auscultation. Breath sounds equal bilaterally. GASTROINTESTINAL: Abdomen soft, non-tender, nondistended. Normoactive bowel sounds x4. MUSCULOSKELETAL: No obvious deformities. Extremities without clubbing, cyanosis , or edema. Diffuse lumbar paraspinous muscle tenderness to palpation. Unable to lift bilateral lower extremities off the bed secondary to low back pain. NEUROLOGICAL: Awake and alert. No obvious cranial nerve deficits. Motor grossly within normal limits. 5/5 muscle strength in bilateral upper and lower extremities. Normal speech. PSYCHIATRIC: Appropriate mood and affect; insight and judgment normal. 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 FAILED OUTPATIENT treatment with PCP. Now associated with new neurologic deficit including inability to ambulate and severe muscle spasm. -Consulted Neurosurgery, Unfortunately the patient is a poor surgical candidate, and high risk to be off Coumadin, recommends conservative treatment -Consult PT, patient would prefer to go home with [facility], case management consulted -Continue pain control with [place] prn, IV Dilaudid and IV Toradol prn breakthrough; increase Flexeril to 10 mg po q8hrs scheduled for spams; Heating pad -Patient still unable to ambulate today, monitor progress. Seen by PT recommends rehab -Constipation: Laxatives/stool softeners. Will try laxatives/enema, discussed with the nurse and patient. If no response we will consider holding laxatives and starting meds for opioid induced constipation -Vit D deficiency. Start ergocalciferol. -Vit B into a lower side. Will start B12 supplement. Likely change in color of the urine is from B12, but will check UA -Paroxysmal Atrial fibrillation followed by Dr. Auguste, Coumadin levels managed by Dr. Auguste -INR therapeutic. Continue Coumadin with pharmacy consult , amiodarone and bisoprolol. -Hypertension - continue lisinopril -Congestive heart failure with unknown ejection fraction, appears fluid compensated currently -History of myocardial infarction 2 -Thoracic aortic aneurysm status post open repair in February 2015 in [place] -Coronary artery bypass grafting in 2014 in [place] -Aortic stenosis status post porcine valve in 2014 and [place] -Hypertension -Hyperlipidemia -GERD Continue home medications as appropriate. DVT Prophylaxis: on Coumadin Plan to DC to SNF after he has a BM Carol Jordan MD Jun 26, 2016 12:41
[2016-06-26] MEDS: HYDROmorphone HCL PF 1 MG/ML VIAL IV PRN (14:41)
[2016-06-26 15:30] VITALS: BP 101/71; PULSE 57; RESP 20; TEMP 95.5; O2SAT 92
[2016-06-26 15:55] VITALS: BP 95/68; PULSE 60
--- NOTE | 2016-07-05 17:23 | PQ ---
Physician Query Response Document PATIENT: JERILYN BUCKNER : 1940 ADMIT DATE: 06/20/2016 11:54 AM DISCH DATE: 06/26/2016 8:23 PM RESPONDING PROVIDER #: [email or web address] QUERY TEXT: CHF Acuity and Type Congestive Heart Failure is documented in the Medical Record. Please document the type and acuity (in cludes probable or suspected) Such as: Type: -- Systolic -- Diastolic -- Combined -- Other, please specify Acuity: -- Acute -- Chronic -- Acute on chronic -- Other, please specify Also please document the underlying cause of the CHF (includes probable or suspected) The patient's Clinical Indicators include: CHF with unknown ejection fraction, appears fluid compensated currently Query created by: Anjana Davies on 07/05/2016 12:02 PM RESPONSE TEXT: Probable Congestive heart failure with unknown ejection fraction, appears fluid compensated. Electronically signed by: Carol Jordan MD 07/05/2016 5:19 PM
== END 2016-06-26 20:23 | DRG 552 ==
LOC: PHED 08:35 → PHEDA 10:48 → OBSVTOIN 11:54 → NEPGCP 17:44 → HOCB 06-21 22:18
PROVIDERS: ADMIT Hospitalist; ATTEND Hospitalist
DX: M48.06 Spinal stenosis, lumbar region (principal); I71.2 Thoracic aortic aneurysm, without rupture; I50.9 Heart failure, unspecified; E55.9 Vitamin D deficiency, unspecified; S39.012A Strain of muscle, fascia and tendon of lower back, initial encounter; I25.810 Atherosclerosis of coronary artery bypass graft(s) without angina pectoris; I48.0 Paroxysmal atrial fibrillation; Z79.01 Long term (current) use of anticoagulants; E78.5 Hyperlipidemia, unspecified; I10 Essential (primary) hypertension; Z95.1 Presence of aortocoronary bypass graft; Z95.3 Presence of xenogenic heart valve; M51.16 Intervertebral disc disorders with radiculopathy, lumbar region; I25.2 Old myocardial infarction; G89.29 Other chronic pain; K21.9 Gastro-esophageal reflux disease without esophagitis; K59.00 Constipation, unspecified; Z87.891 Personal history of nicotine dependence
CPT/HCPCS: 80048; 81001; 82306; 82607; 85025; 85610; 90471; 90732; 96374; 96375; G0009; J1170; J1885; J3420